=== PATIENT | female | born 1970 | race Caucasian/White ===

== ENCOUNTER → 2020-06-01 13:56 | Outpatient (CLI) | payer OTHER, SELFPAY ==
[2020-06-01 15:33] LABS: COVID19 -Nasal RAPID Negative (Negative)
== END ==
PROVIDERS: Visit Provider Physician Assistant
DX: Z11.59 Encounter for screening for other viral diseases (principal)
CPT/HCPCS: 87635

== ENCOUNTER 2020-06-03 12:09 | Inpatient (IN) | payer OTHER, SELFPAY ==
[2020-05-27 12:01] VITALS: BMI 41.8
[2020-06-03] VITALS (18 sets, daily range): BP systolic 110–137; BP diastolic 55–79; PULSE 73–93; RESP 11–17; TEMP 35.9–36.3; O2SAT 96–99; BMI 41.8
--- NOTE | 2020-06-03 | DI.RAD.S_ITS ---
PROCEDURE: XR CERVICAL SPINE 2V OR 3V INDICATIONS: C4-5, C5-6 ACDF TECHNIQUE: 2 intraoperative fluoroscopic view(s) of the cervical spine were acquired. COMPARISON: None. FINDINGS: Intraoperative fluoroscopic images of cervical spine shows anterior fusion at C4 through C6 levels. IMPRESSION: Fluoro guidance was provided intraoperatively for anterior fusion of C4 through C6 vertebral bodies. Dictated by: Luisito Avery M.D. on 06/03/2020 at 15:38 Approved by: Luisito Avery M.D. on 06/03/2020 at 15:38
[2020-06-03] MEDS: LACTATED RINGERS 1,000 ML 42 ML IV ×2 (12:18→16:51)
[2020-06-03] MEDS: VANCOMYCIN 1,000 MG/200 ML PIGGYBACK 200 MG IV (12:43)
[2020-06-03] MEDS: ACETAMINOPHEN 325 MG TABLET 975 MG PO (12:55)
--- NOTE | 2020-06-03 13:44 | PM.PREOP ---
Pre-operative Note COVID-19 COVID-19 status: Negative Result date/Date tested (Pos, Neg/Pending): 06/01/20 Interval Note History & Physical reviewed/Exam performed by Physician: Yes Changes to H&P: No
[2020-06-03] MEDS: CEFAZOLIN 2 GM/100 ML FROZ.PIGGY IV ×2 (14:00→21:50)
--- NOTE | 2020-06-03 14:42 | SUR.OPER ---
Supine on padded OR bed, head on gel donut, towel roll between shoulders vertically; both arms papoosed wigh gel pads; towel clips secure draw sheet. PA taped a patient from bilateral shoulders to foot of bed; silk tape secured patient's head. Legs uncrossed, safety belt at thigh..
--- NOTE | 2020-06-03 16:19 | P.OP_ITS ---
Operative Date/Time/Diagnoses Date of procedure: 06/03/20 Time of procedure: 14:19 Pre-op diagnosis: 1. C4-5, C5-6 spinal stenosis 2. C4-5, C5-6 radiculopathy Post-op diagnosis: same Procedure & Clinicians Procedure: 1. C4-5, C5-6 anterior cervical diskectomy and fusion 2. C4-5, C5-6 anterior interbody cage placement 3. C4-5, C5-6 anterior instrumentation with plate and screw placement in C4-C5 and C6 vertebrae 4. Utilization of microsurgical technique and operating microscope Same procedure as scheduled: Yes Indications: Patient has been having chronic neck pain and worsening cervical radiculopathy. Patient failed multiple conservative management with worsening pain weakness and numbness in her upper extremity. Patient has been having difficulty performing activity of daily living. After discussing risks benefits of treatment options, patient elected proceed with surgery. Surgeon: Monique Good Railroad Car Truck Builder: Ariana Day'Brien Click Yes if Unassisted: No Anesthesia Type: General Operative Notes Closure Type: primary Specimen(s): none sent Prosthetic devices, grafts, tissues, transplants, or devices: Globus extend plate, PEEK cages Estimated Blood Loss (mL): 10 Blood products transfused: none Procedure in detail: Patient was seen in the preoperative area. Risks and benefits of the surgery was discussed with the patient. Operative consent was obtained and placed in the chart. Patient was then taken to the operative room. Prophylactic antibiotic was given less than 0.5 hr prior to skin incision. General anesthesia was administered. Patient was placed into a supine position on her radiolucent table. Bilateral shoulders were taped down to allow proper C- arm imaging. Anterior cervical area was prepped and draped in a sterile fashion. Time-out was performed at this time. Using lateral C-arm imaging, the level between C4 and C6 was identified and marked on patient's neck. A oblique incision from midline towards medial border of sternocleidomastoid muscle was made. The platysma muscle was incised in line with skin incision. Metzenbaum scissor was used to develop the plane between the medial border of sternocleidomastoid d and the strap muscles medially. The carotid sheath and its contents were identified and protected behind the hand- held retractor during the entire case. The plane between the carotid sheath and strap muscles was developed with Metzenbaum scissors. Dissection was made down to the level of the anterior cervical fascia. Longus colli muscle was incised on the anterior aspect of vertebral bodies bilaterally from C4-C6. Spinal needle was placed into the C5-6 disc space and confirmed with lateral C-arm imaging. Using microsurgical technique and operative microscope, anterior cervical diskectomy was performed at C5-6 and C5-6 level. This was done by removing the disc material, removing the anterior and posterior osteophytes posterior longitudinal ligaments along with performing bilateral foraminotomies at both levels. Patient was found to have severe foraminal stenosis at both levels more left than right due to osteophytes and disc bulges. Patient's stenosis was fully decompressed after decompression was completed. After the diskectomy was completed, 2 anterior interbody cages were obtained. The cages were packed with DBM bone grafting material. One cage each along with the bone grafting material was then packed into the interbody spaces from C4-6 with one cage into each interbody level. After the cages were placed, the anterior cervical plate was stabilized to the C4-C6 vertebrae using 2 screws at each each level. Total 6 screws were placed. After confirming placement of the hardware with AP and lateral C-arm imaging, the screws were locked into the plate using the locking mechanism and torque limiting screwdriver. After the hardware was placed and confirmed with AP and lateral C-arm imaging, the wound was irrigated with sterile normal saline. The platysma muscle and the subcutaneous tissue was closed with 2-0 Vicryl. The skin was closed with 4-0Monocryl and Steri-Strips. Patient tolerated the procedure well. Patient was transferred recovery room in stable condition. There were no complications. Complications: none Post-operative Condition: stable Disposition: PACU Plan for aftercare: Admit to inpatient hospital
[2020-06-03] MEDS: HYDROMORPHONE 2 MG INJ IV ×4 (16:43→17:15)
[2020-06-03] MEDS: ONDANSETRON 4 MG/2 ML INJ IV ×2 (16:43→22:44)
[2020-06-03] MEDS: hydrOXYzine 50 MG/ML INJ 25 MG IM (16:43)
[2020-06-03] MEDS: LORazepam 2 MG/ML INJ 0.25 MG IV ×2 (16:58→17:01)
[2020-06-03] MEDS: OXYCODONE IR 5 MG TABLET PO ×2 (17:21→18:06)
--- NOTE | 2020-06-03 18:24 | PC.ADMIT ---
[address] [place] [address] Admission Note: The patient,Tish Valles,49 y/o, was given written information regarding hospital policies, unit procedures and contact persons. Patient's smoking status: Never smoker. Vital Signs - 8 hr 06/03/20 12:29 06/03/20 16:33 06/03/20 16:38 Temperature 96.8 F L 97.3 F L Pulse Rate 85 91 H 86 Respiratory Rate 15 11 L 11 L Blood Pressure 112/72 136/68 124/63 Pulse Oximetry 97 98 98 06/03/20 16:43 06/03/20 16:48 06/03/20 16:53 Temperature Pulse Rate 84 81 85 Respiratory Rate 11 L 11 L 11 L Blood Pressure 132/75 120/55 L 135/63 Pulse Oximetry 99 99 98 06/03/20 16:58 06/03/20 17:18 06/03/20 17:23 Temperature Pulse Rate 93 H 78 79 Respiratory Rate 11 L 11 L 11 L Blood Pressure 135/79 113/63 113/58 L Pulse Oximetry 97 98 99 06/03/20 17:33 06/03/20 17:43 06/03/20 17:48 Temperature Pulse Rate 80 86 85 Respiratory Rate 11 L 11 L 11 L Blood Pressure 111/62 123/67 117/64 Pulse Oximetry 97 98 97 Pt arrived from PACU. A/Ox4. 3L NC sats 96%. Soft collar on. SCD's on and running. VSS. Oriented to room and call system. Bed alarm on.
[2020-06-03] MEDS: SODIUM CHLORIDE 0.9% 1,000 ML 100 ML IV (19:42)
--- NOTE | 2020-06-03 23:26 | PC.NURSE ---
Pt declined IVF, requsted to be S.L. until next dose of IV ABX is due.
[2020-06-04 01:00] VITALS: BP 128/73; PULSE 93; RESP 16; TEMP 36.6; O2SAT 97
[2020-06-04] MEDS: HYDROMORPHONE 0.5 MG INJ IV (01:05)
--- NOTE | 2020-06-04 01:46 | PC.NURSE ---
Addendum entered by Jeanne Shearer R.N. 06/04/20 05:49: States pain still at 6/10 so provided with an ice pack and now states pain is decreasing. Addendum entered by Jeanne Shearer R.N. 06/04/20 04:41: States pain is currently 6/10 in posterior neck and head so medicated with Oxycodone. Original Note: Patient seen and assessed at 0115. Is alert and oriented. Breath sounds CTA; on oxygen at 2L/min per NC with sat of 97% so decreased oxygen to 1L//min and have her on continuous oximetry as has hx of sleep apnea and is not on CPAP at this time. Dressing to neck is CDI; wearing soft collar. Complains of 7/10 so medicated with IV Dilaudid and pain is now down to 5/10. HRR. Denies nausea. BT hypoactive and patient denies passing flatus. Is voiding on toilet; denies dysuria, frequency or urgency but having some hesitancy. Is able to move herself in bed and provided SBA when up to bathroom. At shift change declined to have IVF continued so is currently saline locked. Refusing SCD's so reminded to ankle wave when awake. Fall risk score is moderate and bed alarm is activated.
[2020-06-04] MEDS: OXYCODONE IR 5 MG TABLET PO ×3 (04:40→11:24)
[2020-06-04 05:07] VITALS: BP 150/73; PULSE 93; RESP 18; TEMP 36.8; O2SAT 96
[2020-06-04] MEDS: SODIUM CHLORIDE 0.9% FLUSH 10 ML IV ×2 (05:35→08:09)
[2020-06-04] MEDS: CEFAZOLIN 2 GM/100 ML FROZ.PIGGY IV (05:35)
--- NOTE | 2020-06-04 07:48 | P.PN_ITS ---
Subjective Subjective Date Patient Seen: 06/04/20 Time Patient Seen: 07:48 Interval history: POD #1 s/p C4-[address] Good. She is having significant muscle spasms and posterior headache that is not positional. She has not been up with PT yet. She is voiding without difficulty. No difficulty eating last night. Exam Vital Signs (past 8 hours): - 06/04/20 01:00 06/04/20 05:07 Temperature 97.8 F 98.3 F Pulse Rate 93 H 93 H Respiratory Rate 16 18 Blood Pressure 128/73 150/73 H Pulse Oximetry 97 96 Oxygen Delivery Method Nasal Cannula Oxygen Flow Rate 1 Narrative Exam Narrative: Patient lying in bed in NAD. She is alert and oriented X3. Calves are soft, compressible, and nontender bilaterally. SILT throughout upper extremities. Public Health Dietitian strength strong and equal. Radial pulses symmetrical. Dressing on anterior neck is CDI. Soft collar in place. [facility] Medical History ADHD Anemia Bipolar 2 disorder Depression Easy bruisability Eczema Osteomyelitis Sleep apnea Surgical History H/O lumbar discectomy (02/2000) Hx laparoscopic cholecystectomy (06/2018) Hx of bariatric surgery (2003) Hx of lumbar discectomy (10/2000) Social History household members: spouse Smoking Status: Never smoker alcohol intake: former Assessment & Plan Post-op Postoperative Procedures: Procedures Operation Date: 06/03/20 13:15 Actual Procedures Side Surgeon p C4-5, C5-6, ACDF w/ anterior instrumentation Monique Good MD Patient will mobilize with PT today. No excessive bending, lifting, or twisting. Continue current pain control. Will add valium for significant muscle spasms. If patient mobilizing safely with adequate pain control she can go home today or tomorrow.
[2020-06-04] MEDS: diazePAM 2 MG TABLET PO ×2 (08:08→11:24)
[2020-06-04] MEDS: DOCUSATE 100 MG CAPSULE PO (08:08)
[2020-06-04] MEDS: ACETAMINOPHEN 325 MG TABLET 650 MG PO (08:08)
[2020-06-04] MEDS: DEXTROAMPHETAMINE 5 MG TABLET 15 MG PO (08:08)
[2020-06-04] MEDS: VENLAFAXINE 37.5 MG TABLET PO (08:09)
[2020-06-04] MEDS: lamoTRIgine 100 MG TABLET 200 MG PO (08:09)
--- NOTE | 2020-06-04 08:52 | OT.IP.EVAL ---
Current Diagnoses Other spondylosis with radiculopathy, cervical region (06/03/20) Spinal stenosis, cervical region (06/03/20) Surgery Performed Operation Date: 06/03/20 13:15 Actual Procedures p C4-5, C5-6, ACDF w/ anterior instrumentation - Monique Good MD Past Medical History (Last Reviewed 06/04/20 @ 11:37 by Ariana Manley PA-C) ADHD Anemia Bipolar 2 disorder Depression Easy bruisability Eczema Osteomyelitis Sleep apnea Surgical History (Last Reviewed 06/04/20 @ 11:38 by Ariana Manley PA-C) H/O lumbar discectomy (02/2000) Hx laparoscopic cholecystectomy (06/2018) Hx of bariatric surgery (2003) Hx of lumbar discectomy (10/2000) Occupational Therapy Inpatient Evaluation/Re-Eval M1 PT/OT-IP Prior Functional Status Start: 06/04/20 12:36 Freq: NEEDED Status: Active Protocol: Document 06/04/20 08:28 [facility] (Rec: 06/04/20 12:54 [facility] [id number]) Medical Review Prior Functional Status Medical History Reviewed Yes Diet/Fluid Consistency Regular Communication WNL. No deficits noted. Able to make needs known. Mobility and Gait IND for mobility and amb without AD at baseline. Activities of Daily Living and IADL's IND for all ADLs and IADLs at baseline. Social History Household Members spouse Living Arrangements House Number of Floors (Floors) Two Floors Number of Stairs To Enter/Railing? 5+2+1 RAMON with B railing through garage. 15 steps inside with L railing and R side wall going up. Home Environment Standard Height Toilet,Tub/ Shower Home Equipment Front Wheel Walker,Straight Cane,Shower Seat with Backrest ,Building Carpenter Helper Employment Status [employer] Employed Additional Social History Comment Pt lives with spouse who works night time. Pt has friends who can help if needed. M2 OT-IP Current Condition Start: 06/04/20 12:36 Freq: Status: Active Protocol: Document 06/04/20 08:28 [facility] (Rec: 06/04/20 12:54 [facility] [id number]) Occupational Therapy Current Condition Current Condition Evaluation Date 06/04/20 Treatment Diagnosis s/p C4-5, C5-6 ACDF Diagnosis Onset Date 06/03/20 Post Operative Precautions Cervical Spine Precautions Soft Collar for Comfort,No Heavy Lifting,Log Roll M3 OT- IP Subjective and Pain Start: 06/04/20 12:36 Freq: Status: Active Protocol: Document 06/04/20 08:28 [facility] (Rec: 06/04/20 12:54 [facility] [id number]) OT- Subjective Occupational Therapy Visit Type Type Initial Evaluation Visit Start Time 08:28 Visit Stop Time 08:52 Total Visit Minutes 24 Occupational Therapy Visit Comments Patient Comments Pt agreed to work with OT for OT eval. Patient/Caregiver Goals To go home OT Pain Assessment Pain When Pain Assessed At Rest Pain Present Pain Present Pain Reported Location neck Intensity 5 Scale Used Numeric (0 - 10) M4 OT- IP ADL's Start: 06/04/20 12:36 Freq: Status: Active Protocol: Document 06/04/20 08:28 [facility] (Rec: 06/04/20 12:54 [facility] [id number]) OT [id number] Comments OT Self-Feeding Comments Pt educated on suggestions for eating following ACDF, chew food thoroughly, alternate between solids and liquids, sit upright while eating and to eat softer foods initially would be helpful. OT ADL-Grooming General Evaluation Grooming Ability Independent OT ADL-Oral Care General Eval Oral Care Ability Standby Assistance Comments Oral Care Comments Initially needing vc to spit into a cup versus hinge at her hips to lean to spit into the sink to best follow her cervical precautions. OT ADL-Dressing General Eval Upper Body Dressing Ability Independent Lower Body Dressing Ability Minimal Assistance Areas Needing Assistance Pants/Shorts,Shoes Comments OT Dressing Comments Pt needing assist to tie her shoes, pt issued a casting assistant to help improve independence to get clothing over her feet. Pt able to pepper/doff the soft collar on her own with good safety. OT ADL-Toileting General Evaluation Toileting Ability Independent OT ADL-Bathing Comments OT Bathing Comments Pt states to shower at home and that her would assist her to step into the shower and be there to assist as needed. M5 OT- IP IADL's Start: 06/04/20 12:36 Freq: Status: Active Protocol: Document 06/04/20 08:28 [facility] (Rec: 06/04/20 12:54 [facility] [id number]) OT-Instrumental Activities of Daily Living Home Safety Awareness Awareness of Need for Assistance at Home Good Awareness Ability to Problem Solve Emergency Able to Problem Solve Situations Medication Management Medication Management No Deficits Identified Money Management Money Management No Deficits Identified Meal Preparation Meal Preparation Comments Pt's to assist as needed. M6 OT- IP Functional Cognition Start: 06/04/20 12:36 Freq: Status: Active Protocol: Document 06/04/20 08:28 [facility] (Rec: 06/04/20 12:54 [facility] [id number]) Cognitive Factors Limiting Selfcare Function Cognitive Ability Level of Alertness Alert Patient Orientation Name,Age,Birthday,Month,Date, Year,Day of Week,Place, Situation Attention Span Ability Capable of Focused Attention, Capable of Sustained Attention Ability to Follow Commands Able to Follow Multi-Step Commands Memory Description No Deficits Noted Safety Awareness Underestimates Need for Assistance Problem Solving Ability No deficits Noted Cognitive Comments Cognitive Assessment Comments Pt needing safety reminder to do log rolling in the bed as pt tends to want to long sit to come up in the bed. OT- Vision and Hearing OT- Hearing Assessment OT- Hearing Assessment WFL OT- Vision Assessment Visual Acuity WFL M7 OT- IP Mobility and Balance Start: 06/04/20 12:36 Freq: Status: Active Protocol: Document 06/04/20 08:28 [facility] (Rec: 06/04/20 12:54 [facility] [id number]) OT- Bed Mobility Assessment Rolling Type of Rolling Roll to Right Level of Assistance Standby Assistance Supine to Sit Supine to Sit Assist Standby Assistance Sit to Supine Sit to Supine Assist Standby Assistance OT-Transfer Assessment Sit to and From Stand Sit to and from Stand Standby Assistance Transfers Transfer Ability Standby Assistance Technique Transfer Destination Bed,Chair,Toilet OT- Gait Assessment Comments Gait Ability Comments SBA with no devices. OT- Balance Assessment Sitting Balance and Reactions Static Sitting Balance Ability Normal Dynamic Sitting Balance Ability Normal Standing Balance and Reactions Static Standing Balance Ability Good M8 OT- IP Objective Assessments Start: 06/04/20 12:36 Freq: Status: Active Protocol: Document 06/04/20 08:28 [facility] (Rec: 06/04/20 12:54 [facility] [id number]) OT Gross Range of Motion Upper Extremity Range of Motion Assessment Within Functional Limits OT Strength Comments Strength Comments Weakness in hands, however had issues with her hands prior to surgery especially at thumb MCP R>L. OT- Coordination Assessment Comments Coordination Comments Per pt decreased due to numbness and pain in her hands . Recommended pt if still having issues with her hands may want to see a hand specialist. OT-Muscle Tone Assessment Muscle Tone WNL Yes M9 OT- IP Assessment and Plan Start: 06/04/20 12:36 Freq: Status: Active Protocol: Document 06/04/20 08:28 [facility] (Rec: 06/04/20 12:54 [facility] [id number]) OT Summary Assessment and Plan Potential Rehabilitation Potential Excellent Analytic Complexity at Evaluation Low Summary OT Impairments Strength,Dressing,Bathing Progress Towards Goals Progressing Toward Goals Assessment Summary Pt low complexity and main barrier is pt needing to remember to incorporate her cervical precautions especially for log rolling. Pt has a supportive to be able to assist her if needed. Pt was issued a casting assistant. Goals Dressing Goal Independent Bathing Goal Independent Patient/Caregiver Education Goal Demonstrate Post-Op Precautions,Caregiver Independent Assisting Patient Days to Meet Goals 1 Frequency of Treatment Frequency Of Treatment Once a Day Treatment Plan OT Treatment Plan ADL Training,Functional Cognition Training,Functional Mobility,Patient/Family Education,Discharge Planning Discharge Recommendations OT Discharge Recommendations Home with Assistance Transportation Needs at Discharge Private Vehicle
[2020-06-04 09:48] VITALS: BP 141/80; PULSE 94; RESP 16; TEMP 36.6; O2SAT 93
--- NOTE | 2020-06-04 11:14 | PC.NURSE ---
Patient educated about, activity, medications, follow up, ss of infection, opioid use, how to prevent falls, and ss of stroke. Patient verbalized understanding to all discharge instructions. Patient left facility w/ paper prescriptions, and all belongings. Patient left facility via wheelchair and private vehicle.
--- NOTE | 2020-06-04 11:48 | CM.DANOTE ---
DCP: Case received, EMR reviewed and met with patient. Introduced self and role. Was able to obtain information from patient regarding her baseline activity level prior to surgery. DCP assessment completed with information currently available. Patient is a 49 year old female who admitted yesterday morning to the care of the orthopedic team. Payer: confirmed: [facility] Patient came to the hospital for a surgical procedure. She had C4-5, C5-6, anterior cervical diskectomy and fusion. Patient has had history of neck discomfort secondary to spinal stenosis. Met with patient in her room. She was sitting up in bed, wearing a neck collar. She is alert and oriented, pleasant. She is independent, works as a nurse in a treatment center. She resides in [place] with her spouse, Fernandez. P: Patient is discharging home today, after she is cleared by O.T/P.T. Claudia Davis RN/Medical Detail Representative
--- NOTE | 2020-06-04 12:05 | PT.IIE ---
Current Diagnoses Other spondylosis with radiculopathy, cervical region (06/03/20) Spinal stenosis, cervical region (06/03/20) Surgery Performed Operation Date: 06/03/20 13:15 Actual Procedures p C4-5, C5-6, ACDF w/ anterior instrumentation - Monique Good MD Surgical History (Last Reviewed 06/04/20 @ 11:38 by Ariana Manley PA-C) H/O lumbar discectomy (02/2000) Hx laparoscopic cholecystectomy (06/2018) Hx of bariatric surgery (2003) Hx of lumbar discectomy (10/2000) Medical History (Last Reviewed 06/04/20 @ 11:37 by Ariana Manley PA-C) ADHD Anemia Bipolar 2 disorder Depression Easy bruisability Eczema Osteomyelitis Sleep apnea Physical Therapy Inpatient Evaluation/Re-Eval M1 PT/OT-IP Prior Functional Status Start: 06/04/20 09:07 Freq: NEEDED Status: Discharge Protocol: Document 06/04/20 12:02 [place] (Rec: 06/04/20 12:25 DE [id number]) Medical Review Prior Functional Status Medical History Reviewed Yes Diet/Fluid Consistency Regular Communication WNL. No deficits noted. Able to make needs known. Mobility and Gait IND for mobility and amb without AD at baseline. Activities of Daily Living and IADL's IND for all ADLs and IADLs at baseline. Social History Household Members spouse Living Arrangements House Number of Floors (Floors) Two Floors Number of Stairs To Enter/Railing? 5+2+1 RAMON with B railing through garage. 15 steps inside with L railing and R side wall going up. 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 Pt has friends who can help if needed. M1 PT/OT-IP Prior Functional Status Start: 06/04/20 12:36 Freq: NEEDED Status: Active Protocol: Document 06/04/20 08:28 [facility] (Rec: 06/04/20 12:54 [facility] [id number]) Medical Review Prior Functional Status Medical History Reviewed Yes Diet/Fluid Consistency Regular Communication WNL. No deficits noted. Able to make needs known. Mobility and Gait IND for mobility and amb without AD at baseline. Activities of Daily Living and IADL's IND for all ADLs and IADLs at baseline. Social History Household Members spouse Living Arrangements House Number of Floors (Floors) Two Floors Number of Stairs To Enter/Railing? 5+2+1 RAMON with B railing through garage. 15 steps inside with L railing and R side wall going up. 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 Pt has friends who can help if needed. M2 PT-IP Current Condition Start: 06/04/20 09:07 Freq: NEEDED Status: Discharge Protocol: Document 06/04/20 12:02 [place] (Rec: 06/04/20 12:25 DE [id number]) Physical Therapy Current Condition Current Condition Evaluation Date 06/04/20 Treatment Diagnosis C4-6 anterior diskectomy and fusion; Difficulty with performing ADLs Onset Date 06/03/20 Precautions Cervical Spine Precautions Soft Collar for Comfort ,No Heavy Lifting,Log Roll M3 PT-IP Subjective Start: 06/04/20 09:07 Freq: NEEDED Status: Discharge Protocol: Document 06/04/20 12:02 [place] (Rec: 06/04/20 12:25 DE [id number]) Subjective Physical Therapy Visit Type Type Initial Evaluation Visit Start Time 10:18 Visit Stop Time 10:42 Total Visit Minutes 24 Notes SPT Radhames led session under direct supervision of PT Sarina. Number of GOAT FARMER Visits 0 Physical Therapy Visit Comments Patient Comments Pt is agreeable to do PT. Therapy Pain Assessment Pain When Pain Assessed At Rest Pain Present Pain Present Pain Reported Location neck Intensity 3 Scale Used Numeric (0 - 10) Description Aching Pain Behaviors Calling Out Pain Management Techniques Timing of Activity with Medications M4 PT-IP Mobility and Gait Start: 06/04/20 09:07 Freq: NEEDED Status: Discharge Protocol: Document 06/04/20 12:02 [place] (Rec: 06/04/20 12:25 DE [id number]) PT-Bed Mobility Assessment Rolling Type of Rolling Log Rolling,Roll to Right Level of Assist Standby Assistance Supine to Sit Supine to Sit Standby Assistance,Bedrails PT-Transfer Assessment Sit to and From Stand Sit to and from Stand Standby Assistance,Use of Upper Extremities Equipment Transfer Assistive Device Gait Belt,Front Wheeled Walker Orthotic/Prosthetic Devices or Brace: No Transfers Transfer Destination Bed Transfer Technique Amb Transfer Ability Level of Assist Standby Assistance Comments Mobility Comments Pt was inclined in bed upon arrival. Pt completed supine to sit at R EOB from flat bed using logroll technique with SBA and R bedrail. Pt performed sit to stand and amb ~200 ft with SBA. Pt demonstrated step-through gait pattern without any noticeable deviations. Pt performed 3 steps x3 with SBA: B railing x1, L railing going up x2. Pt used step-over pattern. Pt did not have any unsteadiness or LOB. Pt amb back to the room, sat down on the R EOB, and performed sit to supine using logroll technique with SBA. Call light placed within reach. Gait Assessment Gait Gait Assistance Required: Standby Assistance Distance (Feet) 200 Assistive Devices Assistive Device None,Gait Belt Orthotic/Prosthetic Devices or Brace: No Gait Deviations General Gait Pattern Within Normal Limits Comments Gait Comments See mobility comments. Stair Climbing Assessment Evaluation Level of Assist On Stairs Standby Assistance Devices Stair Climbing Assistive Devices None,Left Railing,Right Railing Technique/Endurance Stair Climbing Direction Ascend and Descend Stair Climbing Technique Step Over Step Number of Steps Climbed 3 Query Text: Stair Climbing Set # Repetitions (reps) 3 Comments Stair Climbing Comments See mobility comments. PT-Balance Assessment Sitting Balance and Reactions Static Sitting Balance Ability Normal Dynamic Sitting Balance Ability Normal Standing Balance and Reactions Static Standing Balance Ability Normal Dynamic Standing Balance Ability Normal M5 PT-IP Objective Assessments Start: 06/04/20 09:07 Freq: NEEDED Status: Discharge Protocol: Document 06/04/20 12:02 DE (Rec: 06/04/20 12:25 DE [id number]) Orientation Orientation/Cognition Level of Alertness Alert Orientation Name,Age,Birthday,Month,Date, Year,Day of Week,Place, Situation Language Function Ability No Deficits Noted Safety Awareness Understands Safety Issues Memory Description No Deficits Noted Gross Range of Motion Upper Extremity ROM Assessment Within Functional Limits Lower Extremity ROM Assessment Within Functional Limits Strength Upper Extremity Strength Assessment Within Functional Limits Lower Extremity Strength Assessment Within Functional Limits Coordination Assessment Gross Coordination Gross Coordination WNL Sensation Assessment Sensation Gross Sensation WNL Light Touch Intact Muscle Tone Muscle Tone WNL Yes M6 PT-IP Treatment Start: 06/04/20 09:07 Freq: NEEDED Status: Discharge Protocol: Document 06/04/20 12:02 DE (Rec: 06/04/20 12:25 DE [id number]) Physical Therapy Treatment Education Education Provided Post-Op Packet,Safety Other Treatments Other Treatment Performed Provided education on safety and role of PT. M7 PT-IP Assessment and Plan Start: 06/04/20 09:07 Freq: NEEDED Status: Discharge Protocol: Document 06/04/20 12:02 DE (Rec: 06/04/20 12:25 DE [id number]) PT Summary Assessment and Plan Potential Rehabilitation Potential Excellent Status of Condition at Evaluation Stable Summary Impairments Pain,ROM,Strength,Bed Mobility ,Transfers,Gait,Activity Tolerance Progress Towards Goals Safe For Discharge Assessment Summary Tish is a 49 yo female POD1 s/p C4-6 anterior diskectomy and fusion. At baseline, pt is IND for all mobility, amb, and ADLs without AD or limitations. On evaluation, pt is SBA for all mobility, transfers, and amb without AD. Pt amb ~200 ft and performed 3 steps x2 with L railing going up. PT anticipates pt will be safe to d/c home with assistance once medically cleared. Frequency of Treatment Frequency Of Treatment Discharge Recommendations To Nursing Amount of Assist Needed Standby Assistance Discharge Recommendations PT Discharge Recommendations Home with Assistance Transportation Needs at Discharge Private Vehicle Treatment was provided by Radhames Jackson, BEL and supervised by Sarina Pham, PT. I personally reviewed this note and agree with its contents.
[2020-06-04 12:20] LABS: Hematocrit 34.9 % (36-46); Mean Corpuscular HGB Conc 31.6 % (30-36); Platelet Count 250 X10^3/uL (150-400); Red Blood Cell Count 4.59 X10^6/uL (4.0-5.2); Red Cell Distribution Width 19.4 % (11.6-14.8); White Blood Cell Count 12.7 X10^3/uL (4.5-11.0)
== END 2020-06-04 12:25 | disposition home or self-care (01) | DRG 472 ==
PROVIDERS: Physician Assistant Surgical; Admitting Provider Orthopaedic Surgery Orthopaedic Surgery of the Spine; Referring Provider Orthopaedic Surgery Orthopaedic Surgery of the Spine; Visit Provider Orthopaedic Surgery Orthopaedic Surgery of the Spine
PROC: 0RG20A0 Fusion of 2 or more Cervical Vertebral Joints with Interbody Fusion Device, Anterior Approach, Anterior Column, Open Approach (ICD-10-PCS; principal; 2020-06-03 13:15)
DX: M48.02 Spinal stenosis, cervical region (principal); Z68.41 Body mass index [BMI] 40.0-44.9, adult; M47.22 Other spondylosis with radiculopathy, cervical region; F31.9 Bipolar disorder, unspecified; E66.01 Morbid (severe) obesity due to excess calories; Z86.14 Personal history of Methicillin resistant Staphylococcus aureus infection; Z20.828 Contact with and (suspected) exposure to other viral communicable diseases
CPT/HCPCS: 36415; 72040; 76000; 85027; 87635; 97161; 97165; 97535; C1776; J0690; J1100; J1170; J2060; J2250; J2405; J2704; J3010; J3410